=== PATIENT | male | born 1980 | race Hispanic/Latino ===

== ENCOUNTER 2020-10-11 00:57 | Inpatient (IN) | payer SELFPAY ==
[2020-10-11] MEDS ORDERED: SODIUM CHLORIDE 0.9% 1000 ML 1,000 ML IV ONE ×4 (01:10→04:59)
--- NOTE | 2020-10-11 01:11 | Emergency Department Report ---
History of Present Illness - General Chief Complaint: Overdose Stated Complaint: OVERDOSE Time Seen by Provider: 10/11/20 00:59 Source: patient, EMS Mode of arrival: Stretcher Limitations: No Limitations - History of Present Illness Initial Comments: Patient is a 40-year-old male that presents emergency room with an overdose. Patient brought in by EMS. Report received EMS. Patient was found unresponsive EMS gave the patient Narcan and the patient started to respond. Patient states that he is not having any pain. Patient denies headache. Patient denies shortness of breath. Patient denies chest pain. Patient states he is not sure what he took but he was trying to get high. Patient denies suicidal ideation. Patient has an abrasion on his forehead he states he does not have a doctor. Patient denies headache. Patient denies recent travel. Patient denies recent international travel. Patient denies exposure to the novel coronavirus. Patient denies sick contacts. Patient denies fever and chills. Patient denies cough. Patient denies diarrhea. Patient denies coming in contact with anybody with symptoms of the novel coronavirus. Complaint: accidental overdose -: Sudden How Overdose Was Discovered: called family/friend Context: Accidental Overdose: wanted to get high Treatments Prior to Arrival: narcan - Related Data Home Medications Medication Instructions Recorded Confirmed Last Taken No Known Home Medications [No 10/11/20 10/11/20 Unknown Reported Home Medications] Allergies Allergy/AdvReac Type Severity Reaction Status Date / Time No Known Allergies Allergy Unverified 10/11/20 02:44 ED Review of Systems ROS: Stated complaint: OVERDOSE Other details as noted in HPI Constitutional: denies: chills, fever Eyes: denies: eye pain, eye discharge, vision change ENT: denies: ear pain, throat pain Respiratory: denies: cough, shortness of breath, wheezing Cardiovascular: denies: chest pain, palpitations Endocrine: no symptoms reported Gastrointestinal: denies: abdominal pain, nausea, diarrhea Genitourinary: denies: urgency, dysuria Musculoskeletal: denies: back pain, joint swelling, arthralgia Skin: denies: rash, lesions Neurological: denies: headache, weakness, paresthesias Psychiatric: denies: anxiety, depression Hematological/Lymphatic: denies: easy bleeding, easy bruising ED Past Medical Hx - Past Medical History Previous Medical History?: No - Surgical History Past Surgical History?: No - Family History Family history: no significant - Social History Smoking Status: Current Every Day Smoker Substance Use Type: Other - Medications Home Medications: Home Medications Medication Instructions Recorded Confirmed Last Taken Type No Known Home Medications [No 10/11/20 10/11/20 Unknown History Reported Home Medications] ED Physical Exam - General Limitations: No Limitations General appearance: alert, in no apparent distress - Head Head exam: Present: atraumatic, normocephalic - Eye Eye exam: Present: normal appearance - ENT ENT exam: Present: mucous membranes moist - Neck Neck exam: Present: normal inspection - Respiratory Respiratory exam: Present: normal lung sounds bilaterally. Absent: respiratory distress - Cardiovascular Cardiovascular Exam: Present: regular rate, normal rhythm. Absent: systolic murmur, diastolic murmur, rubs, gallop - GI/Abdominal GI/Abdominal exam: Present: soft, normal bowel sounds - Rectal Rectal exam: Present: deferred - Extremities Exam Extremities exam: Present: normal inspection - Back Exam Back exam: Present: normal inspection - Neurological Exam Neurological exam: Present: alert, oriented X3 - Psychiatric Psychiatric exam: Present: normal affect, normal mood - Skin Skin exam: Present: warm, dry, intact, normal color. Absent: rash ED Course Vital Signs 10/11/20 10/11/20 10/11/20 01:00 01:16 01:34 Temperature 88.6 F L Pulse Rate 120 H 121 H 133 H Respiratory 14 16 13 Rate Blood Pressure 125/65 104/74 Blood Pressure 126/65 [Left] O2 Sat by Pulse 98 95 Oximetry 10/11/20 10/11/20 10/11/20 01:35 01:46 02:00 Temperature Pulse Rate 128 H 86 89 Respiratory 18 16 Rate Blood Pressure 104/74 104/74 96/64 Blood Pressure [Left] O2 Sat by Pulse Oximetry 10/11/20 10/11/20 10/11/20 02:16 02:30 02:39 Temperature Pulse Rate 84 100 H 98 H Respiratory 14 15 Rate Blood Pressure 125/65 92/51 101/56 Blood Pressure [Left] O2 Sat by Pulse 96 95 Oximetry 10/11/20 10/11/20 10/11/20 02:45 02:46 03:00 Temperature 97.7 F Pulse Rate 109 H 93 H Respiratory 21 17 Rate Blood Pressure 101/56 94/66 Blood Pressure [Left] O2 Sat by Pulse 98 96 Oximetry 10/11/20 10/11/20 10/11/20 03:16 03:30 03:46 Temperature Pulse Rate 108 H 94 H 105 H Respiratory 11 L 12 14 Rate Blood Pressure 94/66 92/57 97/56 Blood Pressure [Left] O2 Sat by Pulse 93 91 92 Oximetry 10/11/20 10/11/20 10/11/20 05:00 05:15 05:21 Temperature Pulse Rate 95 H 87 84 Respiratory 14 12 Rate Blood Pressure Blood Pressure 90/65 92/62 [Left] O2 Sat by Pulse 95 95 95 Oximetry - Reevaluation(s) Reevaluation #1: Initial evaluation done. Patient had an EKG done and it shows A. fib with RVR. On the bridge worker patient's heart rate is between 120 and 140. Patient will be placed on a Cardizem drip and IV fluids given. 10/11/20 01:17 Reevaluation #2: Patient still in A. fib but his rate is below 90. Patient is status post Cardizem push. Patient will be placed on the chart. 10/11/20 02:04 Reevaluation #3: I discussed all results with patient. I discussed plan of care with patient. Patient agrees with plan of care and admission. Patient to be admitted to the hospitalist service. 10/11/20 02:50 - Consultations Consultation #1: Hospitalist consulted for admission. Hospitalist to admit patient. 10/11/20 02:50 ED Medical Decision Making - Lab Data Result diagrams: 10/11/20 01:15 10/11/20 01:15 - EKG Data -: EKG Interpreted by Me EKG shows normal: axis, intervals, QRS complexes, ST-T waves Rate: tachycardia - EKG Data Interpretation: other (A. fib RVR) - Radiology Data Radiology results: report reviewed, image reviewed interpreted by me: Chest x-ray: No pneumonia, no pneumothorax, no foreign body, no osseous findings, no acute findings Examination: CT of the head without contrast Clinical information: Trauma. Laceration. Psychiatric evaluation. Comparison: None Technical: Multiple axial CT images of the head were obtained without intravenous contrast. Sagittal and coronal reformats were obtained. All CTs at this facility utilize dose reduction techniques including automated exposure control, iterative reconstruction and weight based dosing when appropriate to reduce patient radiation dose to as low as reasonable achievable. Findings: INTRACRANIAL CONTENTS: No significant abnormality. No acute territorial infarct. ORBITS: There is no CT evidence of acute intracranial hemorrhage or large territorial infarct. SKULL: No acute bony abnormality is visualized. PARANASAL SINUSES / MASTOID AIR CELLS: Paranasal sinuses and mastoid air cells appear clear. Soft tissue contusion/swelling is noted to the right frontal scalp. Impression: 1. No CT evidence of acute intracranial process.. CHEST 1 VIEW, 10/11/2020 1:01 AM CLINICAL INFORMATION/INDICATION: Tachycardia COMPARISON: None. FINDINGS: SUPPORT DEVICES: None. HEART: The cardiac silhouette is normal in size. LUNGS/PLEURA: The lungs are clear of focal airspace disease or significant pleural effusion. ADDITIONAL FINDINGS: No additional acute findings. IMPRESSION: 1. No evidence of acute cardiopulmonary process. - Medical Decision Making Patient is a 40-year-old male that presents emergency room with overdose. Patient brought in by EMS. EMS gave the patient Narcan and the patient woke up. Patient initially was found unresponsive by EMS. Patient found to have abrasions and bruises to his forehead. Patient had a head CT to rule out an intracranial hemorrhage and a head injury. Patient's head CT was negative for acute findings. Patient had labs done which were essentially unremarkable. Patient also was found after initial evaluation to be in A. fib with RVR. This is a new onset of A. fib. Patient was given a Cardizem push and the patient's heart rate improved. Patient then placed on a Cardizem drip. Patient blood pressure dropped with Cardizem drip and the patient was given boluses of saline. Patient's blood pressure improved. Patient admitted to the hospital service for further evaluation and treatment. Patient admitted to the ICU for new onset A. fib and Cardizem drip. - Differential Diagnosis Overdose, new onset A. fib, tachycardia, dehydration Critical Care Time: Yes Critical care time in (mins) excluding proc time.: 35 Critical care attestation.: If time is entered above; I have spent that time in minutes in the direct care of this critically ill patient, excluding procedure time. Critical Care Time: 35 minutes ED Disposition Clinical Impression: New onset a-fib, Atrial fibrillation with RVR Overdose Qualifiers: Encounter type: initial encounter Injury intent: accidental or unintentional Qualified Code(s): T50.901A - Poisoning by unspecified drugs, medicaments and biological substances, accidental (unintentional), initial encounter Head injury Qualifiers: Encounter type: initial encounter Qualified Code(s): S09.90XA - Unspecified injury of head, initial encounter Scalp abrasion Qualifiers: Encounter type: initial encounter Qualified Code(s): S00.01XA - Abrasion of scalp, initial encounter Altered mental state Qualifiers: Altered mental status type: unspecified Qualified Code(s): R41.82 - Altered mental status, unspecified Disposition: DC-09 OP ADMIT IP TO THIS HOSP Is pt being admited?: Yes Does the pt Need Aspirin: No Condition: Critical Time of Disposition: 02:51
[2020-10-11] MEDS ORDERED: dilTIAZem 25 MG/5 ML INJ IV ONE (01:19)
[2020-10-11 01:53] LABS: Basophils # (Auto) 0.1 K/mm3 (0.0-0.1); Basophils % (Auto) 1.1 % (0.0-1.8); Eosinophils # (Auto) 0.1 K/mm3 (0.0-0.4); Hematocrit 42.1 % (35.5-45.6); Hemoglobin 14.4 gm/dl (11.8-15.2); Lymphocytes # (Auto) 1.9 K/mm3 (1.2-5.4); Lymphocytes % (Auto) 41.3 % (13.4-35.0); Mean Corpuscular HGB Conc 34 % (32-34); Mean Corpuscular Volume 94 fl (84-94); Monocytes # (Auto) 0.4 K/mm3 (0.0-0.8); Monocytes % (Auto) 8.9 % (0.0-7.3); Platelet Count 256 K/mm3 (140-440); Red Blood Count 4.47 M/mm3 (3.65-5.03); Red Cell Distribution Width 14.2 % (13.2-15.2)
--- NOTE | 2020-10-11 01:57 | Cat Scan Report ---
Examination: CT of the head without contrast Clinical information: Trauma. Laceration. Psychiatric evaluation. Comparison: None Technical: Multiple axial CT images of the head were obtained without intravenous contrast. Sagittal and coronal reformats were obtained. All CTs at this facility utilize dose reduction techniques inc luding automated exposure control, iterative reconstruction and weight based dosing when appropriate to reduce patient radiation dose to as low as reasonable achievable. Findings: INTRACRANIAL CONTENTS: No significant abnormality. No acute territorial infarct. ORBITS: There is no CT evidence of acute intracranial hemorrhage or large territorial infarct. SKULL: No acute bony abnormality is visualized. PARANASAL SINUSES / MASTOID AIR CELLS: Paranasal sinuses and mastoid air cells appear clear. Soft tissue contusion/swelling is noted to the right frontal scalp. Impression: 1. No CT evidence of acute intracranial process.. Signer Name: Magalis Corona MD Signed: 10/11/2020 1:53 AM Workstation Name: [id number]
[2020-10-11 02:00] LABS: Alanine Aminotransferase 27 units/L (7-56); Albumin 4.6 g/dL (3.9-5); BUN/Creatinine Ratio 17; Blood Urea Nitrogen 20 mg/dL (9-20); Calcium 9.8 mg/dL (8.4-10.2); Hemolysis Index 14
[2020-10-11] MEDS ORDERED: dilTIAZem/D5W 100 MG/100 ML BAG IV SCH (02:00)
[2020-10-11 02:04] LABS: Creatine Kinase MB 2.5 ng/mL (0.0-4.0)
--- NOTE | 2020-10-11 02:23 | XRay Report ---
CHEST 1 VIEW, 10/11/2020 1:01 AM CLINICAL INFORMATION/INDICATION: Tachycardia COMPARISON: None. FINDINGS: SUPPORT DEVICES: None. HEART: The cardiac silhouette is normal in size. LUNGS/PLEURA: The lungs are clear of focal airspace disease or significant pleural effusion. ADDITIONAL FINDINGS: No additional acute findings. IMPRESSION: 1. No evidence of acute cardiopulmonary process. Signer Name: Magalis Corona MD Signed: 10/11/2020 2:19 AM Workstation Name: [id number]
[2020-10-11 03:26] LABS: Bilirubin,Urine NEG (Negative); Blood,Urine NEG (Negative); Color,Urine Yellow (Yellow); Mucus,Urine FEW /HPF
[2020-10-11 05:56] LABS: Amphetamine Screen,Urine PRESUMPTIVE POSITIVE; Benzodiazepines Screen,Urine PRESUMPTIVE NEGATIVE; Cannabinoid Screen,Urine PRESUMPTIVE NEGATIVE; Cocaine Screen,Urine PRESUMPTIVE NEGATIVE; Methadone Screen,Urine PRESUMPTIVE NEGATIVE; Opiate Screen,Urine PRESUMPTIVE NEGATIVE
[2020-10-11] MEDS ORDERED: MORPHINE 2 MG/1 ML INJ IV PRN (07:19)
--- NOTE | 2020-10-11 07:29 | History and Physical Report ---
History of Present Illness Date of examination: 10/11/20 Date of admission: 10/11/20 02:50 Chief complaint: Unresponsiveness History of present illness: 40-year-old white male brought to the emergency room today by EMS for possible drug overdose. He had been given Narcan with significant improvement in his mental status. Patient denies any fever or chills, no chest pain or shortness of breath, no headache or dizziness, no nausea vomiting, no diarrhea, no abdominal pain, no hematuria or dysuria. He denies any sick contacts and no recent travel. Denies any contact with anyone COVID-19. Patient indicates he was just trying to get high cannot recall the drug he took. He had also sustained a laceration over the forehead. Work-up in the emergency room today reveals atrial fibrillation with RVR on EKG. Urine drug screen was positive for amphetamine. Patient is being placed on Cardizem drip and will be monitored in the ICU. Past History Past Medical History: No medical history Past Surgical History: No surgical history Social history: smoking (Current everyday smoker) Family history: no significant family history Medications and Allergies Allergies Allergy/AdvReac Type Severity Reaction Status Date / Time No Known Allergies Allergy Unverified 10/11/20 02:44 Home Medications Medication Instructions Recorded Confirmed Last Taken Type No Known Home Medications [No 10/11/20 10/11/20 Unknown History Reported Home Medications] Active Meds: Active Medications Diltiazem HCl (Cardizem/D5w 100mg/100ml) 100 mg in 100 mls @ 5 mls/hr IV TITR CJ; Protocol Last Titration: 10/11/20 04:58 Dose: 0 mg/hr, 0 mls/hr Documented by: Sodium Chloride (Nacl 0.9% 1000 Ml) 1,000 mls @ 75 mls/hr IV DIRECT CJ Morphine Sulfate (Morphine 2 Mg/1 Ml Inj) 2 mg IV Q4H PRN PRN Reason: Pain, Moderate (4-6) Ondansetron HCl (Ondansetron 4 Mg/2 Ml Inj) 4 mg IV Q8H PRN PRN Reason: Nausea And Vomiting Sodium Chloride (Sodium Chloride 0.9% 10 Ml Flush Syringe) 10 ml IV BID CJ Sodium Chloride (Sodium Chloride 0.9% 10 Ml Flush Syringe) 10 ml IV PRN PRN PRN Reason: LINE FLUSH Review of Systems Constitutional: no fever, no chills Ears, nose, mouth and throat: no nasal congestion, no sore throat Cardiovascular: no chest pain, no palpitations Respiratory: no cough, no shortness of breath Genitourinary Male: no dysuria, no hematuria, no nocturia Musculoskeletal: no neck pain, no low back pain Integumentary: no rash, no pruritis Neurological: head injury, confusion, no seizures, no headaches Psychiatric: no anxiety, no depression Exam - Constitutional Vitals: Temp Pulse Resp BP Pulse Ox 97.7 F 92 H 17 98/68 100 10/11/20 02:45 10/11/20 07:00 10/11/20 07:00 10/11/20 07:00 10/11/20 07:00 General appearance: Present: no acute distress, well-nourished - EENT Eyes: Present: PERRL, EOM intact. Absent: scleral icterus ENT: hearing intact, clear oral mucosa, dentition normal - Neck Neck: Present: supple, normal ROM - Respiratory Respiratory effort: normal Respiratory: bilateral: CTA - Cardiovascular Rhythm: regular Heart Sounds: Present: S1 & S2. Absent: gallop, systolic murmur, diastolic murmur, rub - Extremities Extremities: no ischemia, pulses intact, pulses symmetrical, No edema, Full ROM Peripheral Pulses: within normal limits - Abdominal General gastrointestinal: Present: soft, non-tender, non-distended, normal bowel sounds. Absent: mass - Integumentary Integumentary: Present: clear, warm, dry, erythema (Erythema and laceration over the forehead). Absent: rash - Musculoskeletal Musculoskeletal: strength equal bilaterally - Psychiatric Psychiatric: appropriate mood/affect, intact judgment & insight, memory intact, cooperative - Neurologic Neurologic: CNII-XII intact, no focal deficits, moves all extremities HEART Score - HEART Score Troponin: Troponin T < 0.010 ng/mL (0.00-0.029) 10/11/20 01:25 Results - Labs CBC & Chem 7: 10/11/20 01:15 10/11/20 01:15 Labs: Abnormal lab results 10/11/20 10/11/20 10/11/20 Range/Units 01:15 01:15 01:15 Lymph % (Auto) 41.3 H (13.4-35.0) % [place] % (Auto) 8.9 H (0.0-7.3) % Sodium 136 L (137-145) mmol/L Chloride 95.0 L (98-107) mmol/L Glucose 263 H (75-100) mg/dL Total Creatine Kinase (55-170) units/L Salicylates < 0.3 L (2.8-20.0) mg/dL Acetaminophen (10.0-30.0) ug/mL 10/11/20 10/11/20 Range/Units 01:15 01:25 Lymph % (Auto) (13.4-35.0) % [place] % (Auto) (0.0-7.3) % Sodium (137-145) mmol/L Chloride (98-107) mmol/L Glucose (75-100) mg/dL Total Creatine Kinase 493 H (55-170) units/L Salicylates (2.8-20.0) mg/dL Acetaminophen 5.0 L (10.0-30.0) ug/mL Assessment and Plan - Patient Problems (1) Altered mental state Current Visit: Yes Status: Acute Qualifiers: Altered mental status type: unspecified Qualified Code(s): R41.82 - Altered mental status, unspecified Plan to address problem: Secondary to drug overdose. Patient has become more alert since receiving Narcan. Will monitor mental status. (2) Atrial fibrillation with RVR Current Visit: Yes Status: Acute Plan to address problem: This is new onset. Probably secondary to the drug overdose. Patient placed on Cardizem drip. Will request cardiology evaluation. Meanwhile we will schedule patient for echocardiogram and also check TSH. (3) Head injury Current Visit: Yes Status: Acute Qualifiers: Encounter type: initial encounter Qualified Code(s): S09.90XA - Unspecified injury of head, initial encounter Plan to address problem: Laceration over forehead has been dressed. (4) Overdose Current Visit: Yes Status: Acute Qualifiers: Encounter type: initial encounter Injury intent: accidental or unintentional Qualified Code(s): T50.901A - Poisoning by unspecified drugs, medicaments and biological substances, accidental (unintentional), initial encounter Plan to address problem: UDS reveals amphetamine use. He responded well to Narcan (5) DVT prophylaxis Current Visit: Yes Status: Acute Plan to address problem: Patient placed on subcutaneous Lovenox. (6) Full code status Current Visit: Yes Status: Acute
[2020-10-11] MEDS ORDERED: ACETAMINOPHEN 325 MG TAB PO ONE (08:59)
[2020-10-11] MEDS: ONDANSETRON 4 MG/2 ML INJ IV PRN ×2 (09:07→18:54)
[2020-10-11] MEDS: SODIUM CHLORIDE 0.9% 1000 ML 1,000 ML IV SCH (09:08)
--- NOTE | 2020-10-11 12:25 | Consultation ---
History of Present Illness Consult date: 10/11/20 Requesting physician: MARIN JOINER Consult reason: atrial fibrillation History of present illness: The pt is a 40 YO male with no significant past medical history. He is previously unknown to our practice. He was brought to the ED per EMS for possible drug overdose. He states that he does not recall the events which lead to his presentation. He remembers being at a bar and then waking up in the hospital. He admits that he was drinking alcohol but does not recall taking any drugs. He was reportedly given Narcan with significant improvement in his mental status. Following arrival, he was noted to be in AFib with RVR and thus cardiology has been consulted. Pt was initiated on cardizem gtt overnight which has since been weaned off. On evaluation, pt is in AFib with CVR. Pt denies any occurrence of chest pain, palpitations, n/v, diaphoresis, dizziness. He denies any known prior cardiac issues or cardiac evaluation. Past History Past Medical History: No medical history Past Surgical History: No surgical history Social history: smoking (Current everyday smoker) Family history: no significant family history Medications and Allergies Allergies Allergy/AdvReac Type Severity Reaction Status Date / Time No Known Allergies Allergy Unverified 10/11/20 02:44 Home Medications Medication Instructions Recorded Confirmed Last Taken Type No Known Home Medications [No 10/11/20 10/11/20 Unknown History Reported Home Medications] Active Meds: Active Medications Enoxaparin Sodium (Enoxaparin 40 Mg/0.4 Ml Inj) 40 mg SUB-Q QDAY@2200 CJ; Protocol Diltiazem HCl (Cardizem/D5w 100mg/100ml) 100 mg in 100 mls @ 5 mls/hr IV TITR CJ; Protocol Last Titration: 10/11/20 04:58 Dose: 0 mg/hr, 0 mls/hr Documented by: Sodium Chloride (Nacl 0.9% 1000 Ml) 1,000 mls @ 75 mls/hr IV DIRECT CJ Last Admin: 10/11/20 09:08 Dose: 75 mls/hr Documented by: Morphine Sulfate (Morphine 2 Mg/1 Ml Inj) 2 mg IV Q4H PRN PRN Reason: Pain, Moderate (4-6) Ondansetron HCl (Ondansetron 4 Mg/2 Ml Inj) 4 mg IV Q8H PRN PRN Reason: Nausea And Vomiting Last Admin: 10/11/20 09:07 Dose: 4 mg Documented by: Sodium Chloride (Sodium Chloride 0.9% 10 Ml Flush Syringe) 10 ml IV BID [facility] Last Admin: 10/11/20 11:06 Dose: 10 ml Documented by: Sodium Chloride (Sodium Chloride 0.9% 10 Ml Flush Syringe) 10 ml IV PRN PRN PRN Reason: LINE FLUSH Review of Systems Constitutional: no weight loss, no weight gain, no fever, no chills, no sweats Ears, nose, mouth and throat: no ear pain, no nose pain, no sinus pressure, no sinus pain Cardiovascular: no chest pain, no orthopnea, no palpitations, no rapid/irregular heart beat, no edema, no lightheadedness, no shortness of breath, no dyspnea on exertion, no leg edema Respiratory: no cough, no shortness of breath, no dyspnea on exertion, no congestion, no wheezing, no pain on inspiration Gastrointestinal: no abdominal pain, no nausea, no vomiting, no diarrhea, no constipation, no change in bowel habits Genitourinary Male: no dysuria, no hematuria, no flank pain, no discharge, no urinary frequency, no urinary hesitancy Musculoskeletal: no neck stiffness, no neck pain, no shooting arm pain, no arm numbness/tingling, no low back pain, no shooting leg pain Integumentary: no rash, no pruritis, no redness, no sores, no wounds Neurological: no head injury, no paralysis, no weakness, no parathesias, no numbness, no tingling, no seizures Psychiatric: no anxiety Endocrine: no cold intolerance, no heat intolerance Hematologic/Lymphatic: no easy bruising, no easy bleeding Allergic/Immunologic: no urticaria Physical Examination Vital Signs Temp Pulse Resp BP Pulse Ox 88.6 F L 120 H 14 126/65 98 10/11/20 01:00 10/11/20 01:00 10/11/20 01:00 10/11/20 01:00 10/11/20 01:00 General appearance: no acute distress HEENT: Positive: PERRL, Normocephaly, Mucus Membranes Moist Neck: Positive: neck supple, trachea midline Cardiac: Positive: irregularly irregular, S1/S2 Lungs: Positive: Decreased Breath Sounds Neuro: Positive: Grossly Intact Abdomen: Negative: Tender Skin: Negative: Rash Musculoskeletal: No Pain Extremities: Absent: edema Results 10/11/20 01:15 10/11/20 01:15 Cardiac Enzymes 10/11/20 10/11/20 Range/Units 01:15 01:25 AST 25 (5-40) units/L CK-MB (CK-2) 2.5 (0.0-4.0) ng/mL CBC 10/11/20 Range/Units 01:15 WBC 4.6 (4.5-11.0) K/mm3 RBC 4.47 (3.65-5.03) M/mm3 Hgb 14.4 (11.8-15.2) gm/dl Hct 42.1 (35.5-45.6) % Plt Count 256 (140-440) K/mm3 Lymph # (Auto) 1.9 (1.2-5.4) K/mm3 [place] # (Auto) 0.4 (0.0-0.8) K/mm3 Eos # (Auto) 0.1 (0.0-0.4) K/mm3 Baso # (Auto) 0.1 (0.0-0.1) K/mm3 Comprehensive Metabolic Panel 10/11/20 Range/Units 01:15 Sodium 136 L (137-145) mmol/L Potassium 4.7 (3.6-5.0) mmol/L Chloride 95.0 L (98-107) mmol/L Carbon Dioxide 24 (22-30) mmol/L BUN 20 (9-20) mg/dL Creatinine 1.2 (0.8-1.3) mg/dL Glucose 263 H (75-100) mg/dL Calcium 9.8 (8.4-10.2) mg/dL AST 25 (5-40) units/L ALT 27 (7-56) units/L Alkaline Phosphatase 60 (35-129) units/L Total Protein 7.4 (6.3-8.2) g/dL Albumin 4.6 (3.9-5) g/dL - Imaging and Cardiology Echo: pending EKG: report reviewed, image reviewed EKG interpretations - Telemetry EKG Rhythm: Atrial Fibrillation - EKG Supraventricular dysrhythmia: atrial fibrillation Assessment and Plan Obtain serum Mg and f/u tte. Initiate PO cardizem. No indication for systemic AC at this time in regards to atrial fibrillation due to CHADS score of 0. Will follow. The patient has been seen in conjunction with Dr. Eduard Olivarez who agrees with the assessment and plan of care. - Patient Problems (1) New onset a-fib Current Visit: Yes Status: Acute (2) Drug overdose Current Visit: Yes Status: Suspected (3) Tobacco use Current Visit: Yes Status: Chronic
[2020-10-11] MEDS ORDERED: ACETAMINOPHEN 325 MG TAB PO PRN (16:21)
[2020-10-11] MEDS: dilTIAZem 30 MG TAB PO SCH ×2 (16:35→21:34)
[2020-10-11] MEDS ORDERED: ENOXAPARIN 40 MG/0.4 ML INJ SUB-Q SCH (22:00)
[2020-10-12] MEDS: SODIUM CHLORIDE 0.9% 1000 ML 1,000 ML IV SCH (02:51)
[2020-10-12 05:57] LABS: Basophils % (Auto) 0.7 % (0.0-1.8); Eosinophils # (Auto) 0.2 K/mm3 (0.0-0.4); Eosinophils % (Auto) 2.7 % (0.0-4.3); Hematocrit 35.3 % (35.5-45.6); Hemoglobin 12.6 gm/dl (11.8-15.2); Lymphocytes # (Auto) 2.6 K/mm3 (1.2-5.4); Lymphocytes % (Auto) 39.8 % (13.4-35.0); Mean Corpuscular HGB Conc 36 % (32-34); Mean Corpuscular Volume 92 fl (84-94); Monocytes # (Auto) 0.6 K/mm3 (0.0-0.8); Monocytes % (Auto) 9.2 % (0.0-7.3); Platelet Count 221 K/mm3 (140-440); Red Blood Count 3.86 M/mm3 (3.65-5.03); Red Cell Distribution Width 14.1 % (13.2-15.2)
[2020-10-12 06:07] LABS: INR 1.01 (0.87-1.13)
[2020-10-12 06:11] LABS: BUN/Creatinine Ratio 16; Blood Urea Nitrogen 14 mg/dL (9-20); Calcium 8.4 mg/dL (8.4-10.2); Hemolysis Index 6
[2020-10-12 08:11] VITALS: BP 121/79
[2020-10-12] MEDS ORDERED: dilTIAZem 30 MG TAB PO SCH (09:00)
--- NOTE | 2020-10-12 09:57 | Progress Note ---
Assessment and Plan tte reviewed - EF 45-50%, mild MR, no significant abnormalities. Pt converted to NSR overnight and remains in NSR. Pt may discharge from cardiology standpoint on Cardizem CD 120mg daily. No indication for systemic AC at this time in regards to atrial fibrillation due to CHADS score of 0 and brief duration of AFib. Recommend pt follow up in our office with Dr. Eduard Olivarez within 2 weeks ([phone]). The patient has been seen in conjunction with Dr. Eduard Olivarez who agrees with the assessment and plan of care. - Patient Problems (1) New onset a-fib Current Visit: Yes Status: Acute Plan to address problem: --> NSR (2) Drug overdose Current Visit: Yes Status: Suspected (3) Tobacco use Current Visit: Yes Status: Chronic Subjective Date of service: 10/12/20 Principal diagnosis: AFib Interval history: pt resting in bed, no current cardiac complaints. tele reviewed - pt converted to NSR overnight, remains in NSR. Objective Last Vital Signs Temp 98.2 F 10/12/20 07:42 Pulse 77 10/12/20 09:45 Resp 18 10/12/20 07:42 BP 121/79 10/12/20 09:45 Pulse Ox 97 10/12/20 07:42 - Physical Examination General: No Apparent Distress HEENT: Positive: PERRL, Normocephaly, Mucus Membranes Moist Neck: Positive: neck supple, trachea midline Cardiac: Positive: Reg Rate and Rhythm, S1/S2 Lungs: Positive: Decreased Breath Sounds Neuro: Positive: Grossly Intact Abdomen: Negative: Tender Skin: Negative: Rash Musculoskeletal: No Pain Extremities: Absent: edema - Labs and Meds Coagulation 10/12/20 Range/Units 05:13 PT 13.1 (12.2-14.9) Sec. INR 1.01 (0.87-1.13) CBC 10/12/20 Range/Units 05:13 WBC 6.5 (4.5-11.0) K/mm3 RBC 3.86 (3.65-5.03) M/mm3 Hgb 12.6 (11.8-15.2) gm/dl Hct 35.3 L D (35.5-45.6) % Plt Count 221 (140-440) K/mm3 Lymph # (Auto) 2.6 (1.2-5.4) K/mm3 [place] # (Auto) 0.6 (0.0-0.8) K/mm3 Eos # (Auto) 0.2 (0.0-0.4) K/mm3 Baso # (Auto) 0.0 (0.0-0.1) K/mm3 Comprehensive Metabolic Panel 10/12/20 Range/Units 05:13 Sodium 137 (137-145) mmol/L Potassium 4.0 (3.6-5.0) mmol/L Chloride 101.5 (98-107) mmol/L Carbon Dioxide 27 (22-30) mmol/L BUN 14 (9-20) mg/dL Creatinine 0.9 (0.8-1.3) mg/dL Glucose 103 H (75-100) mg/dL Calcium 8.4 (8.4-10.2) mg/dL - Imaging and Cardiology EKG: report reviewed, image reviewed Echo: pending
--- NOTE | 2020-10-12 10:49 | Discharge Summary ---
Providers - Providers Date of Admission: 10/11/20 02:50 Attending physician: BRAYDEN TAM MD 10/11/20 07:19 Consult to Dietitian/Nutrition [CONS] Routine Physician Instructions: Reason For Exam: Reason for Consult: Diet education 10/11/20 07:21 Consult to Cardiology [CONS] Routine Consulting Provider: FOZIA PICKARD Reason For Exam: AFIB WITH RVR- NEW ONSET Primary care physician: [employer] Hospitalization Condition: Stable Hospital course: Advised to avoid drug abuse follow with cardiology advised to quit etoh Disposition: DC-01 TO HOME OR SELFCARE Time spent for discharge: 35 mins Exam - Constitutional Vitals: Temp Pulse Resp BP Pulse Ox 98.2 F 77 18 121/79 97 10/12/20 07:42 10/12/20 09:45 10/12/20 07:42 10/12/20 09:45 10/12/20 07:42 Plan Activity: advance as tolerated, fall precautions Diet: low fat Special Instructions: record daily weights, record daily BP diary, smoking cessation Follow up with: BRANDON FERNANDEZ MD [Primary Care Provider] - 7 Days SHRADDHA KHAN MD [Staff Physician] - 7 Days
== END 2020-10-12 14:06 | disposition home or self-care (01) | DRG 918 ==
LOC: ED 00:57 → CC1 02:50 → 4A 08:42
PROVIDERS: ADMIT Internal Medicine Geriatric Medicine; ATTEND Internal Medicine
DX: T43.621A Poisoning by amphetamines, accidental (unintentional), initial encounter (principal); I48.91 Unspecified atrial fibrillation; F17.200 Nicotine dependence, unspecified, uncomplicated; S09.90XA Unspecified injury of head, initial encounter; S00.01XA Abrasion of scalp, initial encounter; X58.XXXA Exposure to other specified factors, initial encounter; Y93.89 Activity, other specified; Y92.89 Other specified places as the place of occurrence of the external cause; Y99.8 Other external cause status
CPT/HCPCS: 36415; 70450; 71045; 80048; 80053; 80307; 80320; 81001; 82550; 82553; 83735; 84443; 84484; 85025; 85610; 93005; 93306; G0378; G0480; J1650; J2405; J7030